=== PATIENT | male | born 1980 | race Caucasian/White ===

== ENCOUNTER 2024-05-08 10:13 | Emergency (ER) | payer BC ==
[2024-05-08] MEDS ORDERED: methylPREDNISolone Sod Succ/PF 125 MG/2 ML VIAL ONE (11:01)
== END 2024-05-08 11:24 | disposition home or self-care (01) ==
LOC: MADERS 10:13
DX: J45.901 Unspecified asthma with (acute) exacerbation (principal); I10 Essential (primary) hypertension; Z87.891 Personal history of nicotine dependence
CPT/HCPCS: 71046; 96372; J2919

== ENCOUNTER 2024-05-13 15:14 | Emergency (ER) | payer BC ==
[2024-05-13] MEDS ORDERED: methylPREDNISolone Sod Succ/PF 125 MG/2 ML VIAL ONE (15:57)
[2024-05-13] MEDS ORDERED: Azithromycin 250 MG TAB ONE (15:57)
== END 2024-05-13 16:12 | disposition home or self-care (01) ==
LOC: MADERS 15:14
DX: J45.901 Unspecified asthma with (acute) exacerbation (principal); F17.210 Nicotine dependence, cigarettes, uncomplicated
CPT/HCPCS: 96372; 99284; J2919